=== PATIENT | male | born 1955 | race Caucasian/White ===

== ENCOUNTER 2017-01-08 17:19 | Inpatient (IN) | payer OTHER ==
[~2017-01-08] VITALS: Ht 180.3 cm; Wt 59.1 kg
--- NOTE | ~2017-01-08 | EKG ---
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 : 1955 Requested By: Cely Anderson Order Number: [id number] MD: Willian Hand Measurements Intervals [place] Rate: 85 P: 30 SC: 132 QRS: -2 QRSD: 88 T: 43 QT: 382 QTc: 455 Interpretive Statements Sinus rhythm Abnormal R-wave progression, early transition Compared to ECG 01/08/2017 17:24:14 Sinus tachycardia no longer present Electronically Signed On 01-09-2017 16:55:20 CDT by Willian Hand [email or web address] <ELECTRONICALLY SIGNED> By: Willian Hand MD, [facility] 01/09/17 6958 161 16 Willian Hand MD, [facility] /EPI
--- NOTE | ~2017-01-08 | EKG ---
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 : 1955 Requested By: Beverly Kelly Order Number: [id number] MD: Willian Hand Measurements Intervals [place] Rate: 100 P: 70 AR: 133 QRS: 13 QRSD: 81 T: 55 QT: 342 QTc: 442 Interpretive Statements Sinus tachycardia RSR' in V1 or V2, right VCD Compared to ECG 02/13/2011 13:27:16 RSR' in V1 or V2 now present Electronically Signed On 01-09-2017 7:58:46 CDT by Willian Hand [email or web address] <ELECTRONICALLY SIGNED> By: Willian Hand MD, [facility] 01/09/17 0758 1724 1724 Willian Hand MD, [facility] /EPI
[~2017-01-08 17:19] MED LIST: ADVAIR 500-501 EACH INH; ASPIRIN EC81 M1 PO; BACTRIM DS TAB1 EACH PO; CLEOCIN HCL300 MG PO; DOXYCYCLINE IV; GLUCOPHAGE850 MG PO; HCTZ; KEFLEX500 MG PO; NORCO 5-325 TA1 EACH PO; PERCOCET 5-3251 EACH PO; PREDNISONE; SERTRALINE HCL50 MG PO; SIMVASTATIN5 MG PO; SINGULAIR; VANCO
[2017-01-08 17:26] VITALS: BP 143/83
[2017-01-08 17:59] LABS: HEMATOCRIT 36.2 % (42.0-52.0); HEMOGLOBIN 12.5 gm/dL (14.0-18.0); MCH 32.6 pg (26.0-34.0); MCHC 34.6 g/dL (28.0-37.0); MCV 94.3 fL (80.0-100.0); RBC 3.84 mil/uL (4.50-6.00); RDW 16.1 % (10.5-14.5); WBC 10.4 thou/uL (4.0-11.0)
[2017-01-08 18:05] LABS: ANION GAP 11 mmol/L (7-16); BUN 13 mg/dL (7-18); CHLORIDE 108 mmol/L (98-107); CO2 24 mmol/L (21-32); GLUCOSE 253 mg/dL (74-106); POTASSIUM 3.1 mmol/L (3.5-5.1); SODIUM 143 mmol/L (136-145)
[2017-01-08 18:13] LABS: ALBUMIN 2.7 g/dL (3.4-5.0); ALKALINE PHOSPHATASE 147 U/L (46-116); SGOT 79 U/L (15-37); SGPT 97 U/L (30-65); TOTAL BILIRUBIN 0.7 mg/dL (<0.1-1.0); TOTAL PROTEIN 7.8 g/dL (6.4-8.2); TROPONIN-I < 0.04 ng/mL (<0.04-0.07)
[2017-01-08 19:56] VITALS: BP 118/74
[2017-01-08 22:00] VITALS: BP 121/69
[2017-01-08 22:50] VITALS: BP 124/68
[2017-01-08] MEDS ORDERED: XANAX1 MG PO (22:50)
[2017-01-08] MEDS ORDERED: LEVEMIR SUBQ (22:50)
[2017-01-08] MEDS ORDERED: TRAZODONE HCL100 MG PO (22:51)
[2017-01-08] MEDS ORDERED: NOVOLOG100 UNIT/1 SUBQ (22:53)
[2017-01-08] MEDS ORDERED: COMBIVENT INH (22:55)
[2017-01-09] MEDS ORDERED: FLOMAX0.4 MG PO (00:30)
[2017-01-09 04:50] VITALS: BP 130/69
[2017-01-09 07:34] VITALS: BP 108/62
[2017-01-09 08:26] LABS: BUN 12 mg/dL (7-18); CALCIUM 9.1 mg/dL (8.5-10.1); CHLORIDE 103 mmol/L (98-107); CHOLESTEROL 140 mg/dL (<200); CO2 22 mmol/L (21-32); CREATININE 0.9 mg/dL (0.7-1.3); GLUCOSE 406 mg/dL (74-106); HDL CHOLESTEROL 25 mg/dL (>40); LDL CHOLESTEROL 107 mg/dL (<100); TC:HDL 5.6 Ratio (Not establshd); TRIGLYCERIDE 44 mg/dL (<150); VLDL 9 mg/dL (<40)
[2017-01-09 08:32] LABS: ANION GAP 9 mmol/L (7-16)
[2017-01-09 08:33] LABS: POTASSIUM 4.3 mmol/L (3.5-5.1); SODIUM 134 mmol/L (136-145)
[2017-01-09] MEDS ORDERED: CYMBALTA60 MG PO ×2 (11:18→11:58)
[2017-01-09 16:33] VITALS: BP 109/66
[2017-01-09 20:00] VITALS: BP 115/60
[2017-01-10 02:06] LABS: GLYCOHEMOGLOBIN (HGB A1C) 7.1 % (4.8-5.6)
[2017-01-10 05:19] VITALS: BP 124/68
[2017-01-10 07:04] LABS: ALBUMIN 2.4 g/dL (3.4-5.0); CALCIUM 8.2 mg/dL (8.5-10.1); CREATININE 0.7 mg/dL (0.7-1.3); MAGNESIUM 1.9 mg/dL (1.8-2.4); POTASSIUM 3.8 mmol/L (3.5-5.1); TOTAL BILIRUBIN 0.4 mg/dL (<0.1-1.0); TOTAL PROTEIN 7.1 g/dL (6.4-8.2)
[2017-01-10 08:33] VITALS: BP 106/61
[2017-01-10] MEDS ORDERED: LEVEMIR SUBQ (10:41)
[2017-01-10] MEDS ORDERED: NOVOLOG100 UNIT/1 SUBQ (10:41)
[2017-01-10 10:51] VITALS: BP 106/61
== END 2017-01-10 16:17 | disposition home or self-care (01) | DRG 391 ==
LOC: ER 17:19 → EROBS 19:45 → 4S 19:45
PROVIDERS: Hospitalist; Nurse Practitioner Acute Care; Physician Assistant
DX: K21.9 Gastro-esophageal reflux disease without esophagitis (principal); E43 Unspecified severe protein-calorie malnutrition; Z68.1 Body mass index [BMI] 19.9 or less, adult; I10 Essential (primary) hypertension; E78.5 Hyperlipidemia, unspecified; E87.6 Hypokalemia; K52.9 Noninfective gastroenteritis and colitis, unspecified; F41.9 Anxiety disorder, unspecified; R74.0 Nonspecific elevation of levels of transaminase and lactic acid dehydrogenase [LDH]; J45.909 Unspecified asthma, uncomplicated; Z96.652 Presence of left artificial knee joint; F17.210 Nicotine dependence, cigarettes, uncomplicated; E11.65 Type 2 diabetes mellitus with hyperglycemia; Z79.84 Long term (current) use of oral hypoglycemic drugs; Z79.899 Other long term (current) drug therapy; Z79.82 Long term (current) use of aspirin; Z89.619 Acquired absence of unspecified leg above knee; Z91.012 Allergy to eggs; Z88.0 Allergy status to penicillin; Z90.49 Acquired absence of other specified parts of digestive tract; Z79.4 Long term (current) use of insulin
CPT/HCPCS: 10100

== ENCOUNTER 2018-08-08 21:02 | Inpatient (IN) | payer OTHER ==
[~2018-08-08] VITALS: Ht 177.8 cm; Wt 63.0 kg
[~2018-08-08 21:02] MED LIST changes: +ATIVAN0.5 MG PO; +CEFDINIR300 MG PO; +COMBIVENT INH; +CYMBALTA60 MG PO; +FLOMAX0.4 MG PO; +LEVEMIR SUBQ; +NOVOLOG100 UNIT/1 SUBQ; +TRAZODONE HCL100 MG PO; +XANAX1 MG PO
[2018-08-08] MEDS ORDERED: XIFAXAN550 M1 PO (21:13)
[2018-08-08] MEDS ORDERED: NEURONTIN 300300 M1 PO (21:13)
[2018-08-08] MEDS ORDERED: XANAX 0.5 MG0.5 MG PO (21:14)
[2018-08-08] MEDS ORDERED: VIVARIN200 MG PO (21:14)
[2018-08-08] MEDS ORDERED: OMEPRAZOLE 20 M20 M1 PO (21:15)
[2018-08-08] MEDS ORDERED: LACTULOSE20 GM/30 M PO (21:15)
[2018-08-08] MEDS ORDERED: TRAZODONE HCL100 MG PO (21:16)
[2018-08-08 21:18] LABS: ABSOLUTE NEUTROPHILS 3.3 thou/uL (1.4-8.2); BASOPHILS 0.5 % (0.0-2.0); EOSINOPHILS 5.9 % (0.0-3.0); HEMATOCRIT 37.6 % (42.0-52.0); HEMOGLOBIN 12.7 gm/dL (14.0-18.0); LYMPHOCYTES 30.7 % (24.0-44.0); MCH 30.3 pg (26.0-34.0); MCHC 33.8 g/dL (28.0-37.0); MCV 89.7 fL (80.0-100.0); MONOCYTES 8.4 % (1.0-8.0); PLATELET COUNT 158 thou/uL (150-400); POLYS 54.5 % (36.0-66.0); RBC 4.19 mil/uL (4.50-6.00); RDW 13.9 % (10.5-14.5); WBC 6.1 thou/uL (4.0-11.0)
[2018-08-08] MEDS ORDERED: ADVAIR INHALER INH (21:18)
[2018-08-08] MEDS ORDERED: VENTOLIN HFA 1818 GM INH (21:18)
[2018-08-08 21:20] LABS: ANION GAP 4 mmol/L (7-16); BUN 14 mg/dL (7-18); CALCIUM 9.7 mg/dL (8.5-10.1); CHLORIDE 102 mmol/L (98-107); CO2 29 mmol/L (21-32); CREATININE 0.9 mg/dL (0.7-1.3); GLUCOSE 357 mg/dL (74-106); POTASSIUM 3.8 mmol/L (3.5-5.1); SODIUM 135 mmol/L (136-145)
[2018-08-08 21:29] LABS: ALBUMIN 2.9 g/dL (3.4-5.0); DIRECT BILIRUBIN 0.1 mg/dL (<0.1-0.3); LIPASE 145 U/L (73-393); SGOT 29 U/L (15-37); SGPT 45 U/L (30-65); TOTAL BILIRUBIN 0.3 mg/dL (<0.1-1.0); TOTAL PROTEIN 7.6 g/dL (6.4-8.2); TROPONIN-I <0.06 ng/mL (<0.06)
[2018-08-08 23:24] VITALS: BP 97/56
[2018-08-08 23:34] VITALS: BP 101/58
[2018-08-09 04:05] VITALS: BP 105/68
--- NOTE | 2018-08-09 04:17 | NUR ---
ADMITTED FROM ER UNDER 'S CARE. SEEN BY RONALD HOLLIDAY HUSKER OPERATOR FOR . ADMITTED WITH CHEST PAIN/ABD PAIN. AXOX4. 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 IVF INITIATED AND PU PUT ON NPO FOR ECHO IN THE MORNING. NO S/S ACUTE DISTRESS NOTED OR REPORTED UPON ADMISSION. PER DISEASE INTERVENTION SPECIALIST'S APPROVAL, A CUP OF APPLE JUICE AND TRAZODONE ADMIN. WILL CONT TO MONITOR ANY CHANGES CONDITION.
[2018-08-09 05:28] LABS: ANION GAP 7 mmol/L (7-16); BUN 12 mg/dL (7-18); CALCIUM 8.8 mg/dL (8.5-10.1); CHLORIDE 102 mmol/L (98-107); CHOLESTEROL 119 mg/dL (<200); CO2 27 mmol/L (21-32); CREATININE 0.7 mg/dL (0.7-1.3); GLUCOSE 271 mg/dL (74-106); HDL CHOLESTEROL 34 mg/dL (>40); LDL CHOLESTEROL 75 mg/dL (<100); POTASSIUM 3.9 mmol/L (3.5-5.1); SODIUM 136 mmol/L (136-145); TC:HDL 3.5 Ratio (Not establshd); TRIGLYCERIDE 52 mg/dL (<150); TROPONIN-I <0.06 ng/mL (<0.06); VLDL 10 mg/dL (<40)
[2018-08-09 05:29] LABS: SERUM ASSESSMENT Clear
[2018-08-09 07:47] VITALS: BP 100/57
--- NOTE | 2018-08-09 09:27 | EKG ---
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 : 1955 Requested By: Jonah Carvalho Order Number: [id number] MD: Willian Hand Measurements Intervals [place] Rate: 85 P: 44 TN: 136 QRS: 37 QRSD: 80 T: 55 QT: 355 QTc: 422 Interpretive Statements Sinus rhythm RSR' in V1 or V2, right VCD Compared to ECG 03/23/2017 10:43:59 No significant change was found Electronically Signed On 08-09-2018 9:27:07 CDT by Willian Hand [email or web address] ��������������������������������������������� <ELECTRONICALLY SIGNED> ���������������������������������������� By: Willian Hand MD, [facility] ��������������������������������������������� 08/09/1827 08 08 Willian Hand MD, F[facility] /EPI
--- NOTE | 2018-08-09 09:32 | EKG ---
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 : 1955 Requested By: Vinita Lamas Order Number: [id number] MD: Willian Hand Measurements Intervals [place] Rate: 77 P: 32 HI: 144 QRS: 11 QRSD: 83 T: 50 QT: 363 QTc: 411 Interpretive Statements Sinus rhythm Normal tracing Compared to ECG 03/23/2017 10:43:59 No significant change was found Electronically Signed On 08-09-2018 9:32:35 CDT by Willian Hand [email or web address] ��������������������������������������������� <ELECTRONICALLY SIGNED> ���������������������������������������� By: Willian Hand MD, [facility] ��������������������������������������������� 08/09/18 0932 0734 3 Willian Hand MD, [facility] /EPI
--- NOTE | 2018-08-09 10:06 | 2DMMODE ---
[facility] [address] [place] [address] 2 D/M-MODE ECHOCARDIOGRAM Name: ANTONIOPAOLAFELECIA K Room #: 451-P ADM IN .R.#: [id number] ������������� Admission: 08/08/18 ������������� Attend Phys: Ilya Dickinson Discharge: ��� ������������� ��� Date of : 57 Date of Service: 08/09/18 1006 �� Report #: [id number] �������� ��������������������������������������������[id number] THIS REPORT FOR: //name// APPROVED REPORT Study performed: 08/09/2018 09:22:54 EXAM: Comprehensive 2D, Doppler, and color-flow Echocardiogram Patient Location: Echo lab Room #: [facility] Status: routine BSA: 1.79 HR: 76 bpm BP: 100/57 mmHg Rhythm: NSR Other Information Study Quality: Adequate Indications Diabetes Chest Pain Hypertension/HDD 2D Dimensions RVDd: 33.45 mm IVSd: 7.57 (7-11mm) LVOT Diam: 19.60 (18-24mm) LVDd: 45.48 mm PWd: 8.25 (7-11mm) Ascending Ao: 31.15 (22-36mm) LVDs: 28.61 (25-40mm) Aortic Root: 33.43 mm IVC: 16.00 mm Volumes Left Atrial Volume (Systole) Single Plane 4CH: 26.13 mL Single Plane 2CH: 21.70 mL LA ESV Index: 15.00 mL/m2 Aortic Valve AoV Peak Kodi.: 1.56 m/s AO Peak Gr.: 9.77 mmHg LVOT Max P.19 mmHg LVOT Max V: 1.34 m/s ANUPAMA Vmax: 2.59 cm2 Mitral Valve E/A Ratio: 1.[address] [facility] [address] [place] [address] 2 D/M-MODE ECHOCARDIOGRAM Name: FELECIA MACIAS Room #: 451-P [facility]#: [id number] ������������� Admission: 08/08/18 ������������� Attend Phys: Ilya Dickinson Discharge: ��� ������������� ��� Date of : 57 Date of Service: 08/09/18 1006 �� Report #: [id number] �������� ��������������������������������������������[id number] MV Decel. Time: 272.52 ms MV E Max Kodi.: 0.86 m/s MV A Kodi.: 0.85 m/s MV PHT: 79.03 ms IVRT: 87.66 ms Pulmonary Valve PV Peak Kodi.: 0.83 m/s PV Peak Gr.: 2.78 mmHg Pulmonary Vein P Vein S: 0.66 m/s P Vein A: 0.29 m/s P Vein D: 0.51 m/s P Vein A Dur.: 73.8 msec P Vein S/D Ratio: 1.29 Tricuspid Valve TR Peak Kodi.: 2.65 m/s TR Peak Gr.: 28.01 mmHg PA Pressure: 33.00 mmHg Left Ventricle The left ventricle is normal size. There is normal LV segmental wall motion. There is normal left ventricular wall thickness. Left ventricular systolic function is normal. The left ventricular ejection fraction is within the normal range. LVEF is 55-60%. The left ventricular diastolic function is normal. Right Ventricle The right ventricle is normal size. The right ventricular systolic function is normal. Atria The left atrium size is normal. The right atrium size is normal. Aortic Valve Aortic valve is calcified. No aortic regurgitation is present. There is no aortic valvular stenosis. Mitral Valve Mild mitral annular calcification There is no mitral valve regurgitation noted. No evidence of mitral valve stenosis. Tricuspid Valve The tricuspid valve is normal in structure. There is trace tricuspid regurgitation. Estimated PAP [address] [facility] [address] [place] [address] 2 D/M-MODE ECHOCARDIOGRAM Name: FELECIA MACIAS Room #: 451-P [facility] IN ..#: [id number] ������������� Admission: 08/08/18 ������������� Attend Phys: Ilya Dickinson Discharge: ��� ������������� ��� Date of : 57 Date of Service: 08/09/18 1006 �� Report #: [id number] �������� ��������������������������������������������[id number] Pulmonic Valve The pulmonary valve is normal in structure. There is no pulmonic valvular regurgitation. Great Vessels The aortic root is normal in size. IVC is normal in size and collapses >50% with inspiration. Pericardium There is no pericardial effusion. <Conclusion> Left ventricular systolic function is normal. There is normal LV segmental wall motion. LVEF is 55-60%. Aortic valve is calcified. No aortic valvular stenosis or insufficiency. Mild mitral annular calcification. No mitral valve regurgitation There is trace tricuspid regurgitation. Estimated pulmonary artery pressure of 33 mmHg. There is no pericardial effusion. ��������������������������������������������� <ELECTRONICALLY SIGNED> ���������������������������������������� By: Willian Hand MD, [facility] ��������������������������������������������� 08/09/18 1006 100 05 Willian Hand MD, [facility]ACC /INF
--- NOTE | 2018-08-09 12:53 | NUR ---
TOWARDS POC PT A/O X4, VSS, AFEBRILE, PAIN MANEGD BY MEDS-SEE MAR. ECHO DONE, PT ON NUC STRESS TEST AT THIS MOMENT. GI AND CARDIO SEEN AND EXAMINED THE PT. WILL CONTINUE TO MONITOR.
--- NOTE | 2018-08-09 13:57 | NUR ---
PT ADMITTED RELATED TO ABD/CHEST PAIN. CM REVIEWED CHART AND SPOKE WITH CARE TEAM. CM MET WITH PT AT BEDSIDE THIS DAY. PT IS A&O X4. CM ROLE INTRODUCED. 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 PT INDICATED HE HAD USED A 4[facility] TO ASSIST WITH MOBILITY MILL ATTENDANT. PT INDICATED HE HAD HOME HEALTH IN THE PAST BUT CAN'T RECALL PROVIDER. PT INDICATED HE ANTICPATES RETURNING TO [facility]IT[facility] ONCE MEDICALLY STABLE. CM TO FOLLOW INDICATED WITH DC PLANNING.
[2018-08-09 14:32] VITALS: BP 97/58
[2018-08-09 19:03] VITALS: BP 119/75
--- NOTE | 2018-08-09 19:15 | NUR ---
PATIENT TRANSFERRED FROM 451 TO SICU 220, PATIENT RECEIVED PRN MORPHINE 4MG IV PUSH FROM OFF GOING NURSE ONCE ON THE SICU, PATIENT MADE COMFORTABLE IN BED, ORIENTED TO ROOM AND STAFF, GIVEN PITCHER WITH FRESH ICE WATER AND APPLE JUICE, UNDERSTAND NPO AFTER MIDNIGHT ORDER FOR EGD TOMORROW, WALKER AT BEDSIDE, PERSONAL BELONGINGS AND CALL LIGHT IN REACH, WILL CONTINUE TO MONITOR
[2018-08-09 20:26] VITALS: BP 119/75
[2018-08-10 04:13] LABS: INR 1.1; PROTIME 11.5 Seconds (9.3-11.4)
--- NOTE | 2018-08-10 04:15 | NUR ---
Assumed pt. care at 1900. Pt. A&Ox4; swallows meds whole w/o difficulty. Remains cont. B&B. Ambulates w/ asst of walker; gait steady. Blood sugars WNl. Remains on lovenox therapy; no s/s of bleeding noted. RAC noted/infusing NS@125mls/hr w/o difficulty. L AKA noted; no redness/drainage noted to site. Last BM 08/09/18, per pt. Pt. NPO for procedure in a.m. Pt has no c/o pain or discomfort. No s/s of acute distress noted. Pt. in bed w/ bed w/ call light/desired belongings within reach. Will continue to monitor.
[2018-08-10 07:05] VITALS: BP 118/80
--- NOTE | 2018-08-10 08:38 | NUR ---
ASSUMED CARE OF PATIENT THIS MORNING. PATIENT IS A&OX4. HE IS UP W/1 ASSIST AND WALKER. HE IS CURRENTLY NPO. HE HAD AN ULTRASOUND THIS MORNING AND WILL POSSIBLY HAVE A EGD TODAY. HE CURRENTLY HAS NS 125ML/HR GOING IN HIS RIGHT AC. VS ARE WITHIN NORMAL RANGE. FALL PRECAUTIONS ARE IN PLACE. HE IS DIABETIC AND IS ON A LOW DOSE SLIDING SCALE FOR INSULIN. VOIDS PER URINAL. CONTINENT OF BOWEL AND BLADDER. PATIENT CALLS OUT APPROPRIATELY FOR ASSISTANCE.
--- NOTE | 2018-08-10 10:13 | NUR ---
SW reviewed chart and spoke with nursing. Pt [facility] and is progressing towards goals for discharge. Pt to have EGD today per GI. Plan is for pt to return to his extended stay hotel when ready for discharge. ISABELLA is following to assist as needed with discharge planning.
--- NOTE | 2018-08-10 10:40 | NUR ---
PATIENT REMAINED NPO FOR EGD AND CURRENTLY OFF UNIT FOR PROCEDURE. SALINE LOCKED. TRANSPORT PICKED PATIENT UP VIA CART ALONG WITH PATIENT CHART.
[2018-08-10 15:07] VITALS: BP 121/90
[2018-08-10] MEDS ORDERED: PANTOPRAZOLE SO40 M1 PO (15:15)
[2018-08-10] MEDS ORDERED: TRAMADOL 50 MG50 MG PO (15:15)
--- NOTE | 2018-08-10 15:15 | NUR ---
PATIENT RETURNED FROM EGD APPROXIMATELY 1450. PATIENT'S VS TAKEN. MORNING MEDICATIONS WERE GIVEN. BLOOD SUGAR TAKEN. PATIENT SETTLED, LYING IN BED WITH CALL LIGHT WITHIN REACH.
[2018-08-10 16:24] VITALS: BP 121/90
--- NOTE | 2018-08-13 17:06 | PATH ---
[facility] [address] [address] PATHOLOGY RPT PROCEDURE Name: FELECIA MACIAS Room #: 220-P DIS IN M.R.#: [id number] ������������������ Admission: 08/08/18 ������������������ Date of : 57 Discharge: 08/10/18 Report #: [id number] Path Case #: [id number] [facility] Accession Number: [id number] . 01 Material submitted: . PART A: stomach - GASTRIC BX R/O H-PYLORI BF-C PART B: esophagus - ESOPHAGEAL BX R/O EOE BF-C . 01 Clinical history: . Pre-OP DX: Noncardiac chest pain Post-OP DX: Ulcerative esophagitis, severe gastritis, mild duodenitis . 02 Diagnosis: A. Gastric mucosa, gastric rule out H. pylori, endoscopic biopsy: - Mild chronic gastritis with features of reactive gastropathy. - Negative for intestinal metaplasia or atrophy. - Negative for Helicobacter pylori (properly-controlled immunohistochemical stain performed). . B. Squamous mucosa, esophageal rule out EOE, endoscopic biopsy: - Mild active esophagitis with intraepithelial hemorrhage and rare eosinophils (1-2/HPF), features compatible with reflux esophagitis. - Negative for intestinal metaplasia or dysplasia. . (IUV:mml; 08/13/2018) QLM/08/13/2018 . 02 Electronically signed: . Chelsie Escalona MD, Pathologist NPI- [id number] . 01 Gross description: . A. Received in formalin labeled "Felecia Macias, BX gastritis, rule out H. pylori," and additionally labeled on the requisition as "gastric BX," are 5 segments of gabriel soft tissue measuring 1.4 x 0.9 x 0.2 cm in aggregate dimensions and ranging from 0.3 to 0.4 cm in maximum dimension. The specimen is submitted entirely in cassette A1. . B. Received in formalin labeled "Felecia Macias, esophageal BX, rule out EOE," are 3 segments of gabriel soft tissue measuring 0.9 x 0.7 x 0.2 cm in aggregate dimensions and ranging from 0.3 to 0.5 cm in maximum dimension. The specimen is submitted entirely in cassette B1. (TSD; 08/10/2018) TOB/TOB . 02 Pathologist provided ICD-10: K29.50, K21.0 [place] [address] PATHOLOGY RPT PROCEDURE Name: FELECIA MACIAS Room #: 220-P DIS IN M.R.#: [id number] ������������������ Admission: 08/08/18 ������������������ Date of : 57 Discharge: 08/10/18 Report #: [id number] Path Case #: [id number] . 02 CPT . [id number], [id number], [id number] Specimen Comment: A courtesy copy of this report has been sent to Specimen Comment: [phone], , . Specimen Comment: Report sent to ,DR SEPULVEDA / DR WILSON Performed at: [address] [facility], [place] [id number] MD Charlie Hale MD Phone: [phone] Performed at: [address] [facility] [id number] MD Chelsie Escalona MD Phone: [phone]
== END 2018-08-10 18:33 | disposition home or self-care (01) | DRG 392 ==
LOC: ER 21:02 → 4W 23:07 → EROBS 23:07 → 4W 23:45 → SICU 08-09 18:07
PROVIDERS: Emergency Medicine; Nurse Practitioner; Nurse Practitioner Family; ADMIT Hospitalist
PROC: 0DB68ZX Excision of Stomach, Via Natural or Artificial Opening Endoscopic, Diagnostic (ICD-10-PCS; principal; 2018-08-10)
PROC: 0DB58ZX Excision of Esophagus, Via Natural or Artificial Opening Endoscopic, Diagnostic (ICD-10-PCS; 2018-08-10)
DX: K29.70 Gastritis, unspecified, without bleeding (principal); I42.9 Cardiomyopathy, unspecified; J45.909 Unspecified asthma, uncomplicated; I10 Essential (primary) hypertension; K21.0 Gastro-esophageal reflux disease with esophagitis; E78.5 Hyperlipidemia, unspecified; K74.60 Unspecified cirrhosis of liver; F17.210 Nicotine dependence, cigarettes, uncomplicated; Z96.652 Presence of left artificial knee joint; E11.42 Type 2 diabetes mellitus with diabetic polyneuropathy; K72.90 Hepatic failure, unspecified without coma; E11.65 Type 2 diabetes mellitus with hyperglycemia; R13.10 Dysphagia, unspecified; K29.80 Duodenitis without bleeding; F41.9 Anxiety disorder, unspecified; Z90.49 Acquired absence of other specified parts of digestive tract; Z88.0 Allergy status to penicillin; Z91.012 Allergy to eggs; Z89.612 Acquired absence of left leg above knee; Z86.19 Personal history of other infectious and parasitic diseases; Z80.0 Family history of malignant neoplasm of digestive organs; Z82.3 Family history of stroke; Z81.8 Family history of other mental and behavioral disorders; Z71.6 Tobacco abuse counseling; Z91.19 Patient's noncompliance with other medical treatment and regimen
CPT/HCPCS: 10045; 15002; 62110; 62900; 70005